=== PATIENT | female | born 2005 | race Caucasian/White ===

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

== ENCOUNTER 2025-04-11 20:50 | Outpatient (REF) | payer OTHER, SELFPAY ==
[2025-04-23 23:28] LABS: Testosterone, Free 71.6 pg/mL (0.1-6.4)
== END 2025-04-11 20:51 | disposition home or self-care (01) ==
LOC: LBN 20:50
PROVIDERS: PCP Family Medicine; Visit Provider Nurse Practitioner Family
DX: F64.9 Gender identity disorder, unspecified (principal)
CPT/HCPCS: 84402; 84403

== ENCOUNTER 2025-07-05 12:15 | Outpatient (REF) | payer OTHER, SELFPAY ==
[2025-07-05 21:27] LABS: HGB 13.7 g/dL (11.2-15.7)
[2025-07-05 21:37] LABS: ALT 28 U/L (14-59); AST 18 U/L (15-37); Albumin 3.8 g/dL (3.4-5.0); Alkaline Phosphatase 55 U/L (46-116); Bilirubin, Direct 0.1 mg/dL (0.0-0.2); Bilirubin, Total 0.4 mg/dL (0.2-1.0); Total Protein 7.0 g/dL (6.4-8.2)
[2025-07-13 01:38] LABS: Testosterone, Free 75.3 pg/mL (0.1-6.4)
== END 2025-07-05 12:16 | disposition home or self-care (01) ==
LOC: LBN 12:15
PROVIDERS: PCP Family Medicine; Visit Provider Nurse Practitioner Family
DX: F64.9 Gender identity disorder, unspecified (principal); E84.9 Cystic fibrosis, unspecified
CPT/HCPCS: 80076; 84402; 84403; 82670; 85018

== ENCOUNTER 2025-08-21 14:52 | Outpatient (REF) | payer OTHER, SELFPAY ==
[2025-08-26 11:14] LABS: Chlamydia Result Negative (Negative); GC Result Negative (Negative)
== END 2025-08-21 14:53 | disposition home or self-care (01) ==
LOC: NCHCN 14:52
PROVIDERS: PCP Family Medicine; Visit Provider Nurse Practitioner Family
DX: Z11.3 Encounter for screening for infections with a predominantly sexual mode of transmission (principal); R39.9 Unspecified symptoms and signs involving the genitourinary system
CPT/HCPCS: 87077; 87491; 87591; 87086; 87186